=== PATIENT | male | born 1960 | race Caucasian/White ===

== ENCOUNTER → 2021-05-05 | Outpatient (REF) ==
--- NOTE | 2021-05-05 14:45 | REP ---
INDICATION: PAIN ARTHRITIS COMPARISON: None. TECHNIQUE: AP, lateral, bilateral oblique views left wrist. FINDINGS: Patient is noted to be status post multiple carpal bone resection and orthopedic repair with distal radial endoprosthesis. The residual osseous structures are relatively normal and without significant osteophytosis, heterotopic ossification or chondrocalcinosis. No obvious acute fracture or dislocation is identified. No prior examinations are available for comparison. IMPRESSION: Evidence for prior orthopedic intervention. No prior examinations are available for comparison. Findings appear relatively appropriate. <Electronically signed by Salvador Morales > 05/05/21 [id number]
--- NOTE | 2021-05-05 14:46 | REP ---
INDICATION: PAIN ARTHRITIS COMPARISON: None. TECHNIQUE: AP and lateral left forearm FINDINGS: No prior examinations are available for comparison. Patient is status post intervention involving the distal radius with endoprosthesis placement and evidence for multiple carpal bone resection. No evidence for acute fracture or dislocation. No subcutaneous emphysema or foreign body. IMPRESSION: Postsurgical changes. No evidence for acute abnormality by radiographic evaluation. <Electronically signed by Salvador Morales > 05/05/21 [id number]
--- NOTE | 2021-05-05 14:47 | REP ---
INDICATION: PAIN ARTHRITIS COMPARISON: None. TECHNIQUE: AP, lateral, bilateral oblique and sunrise views. FINDINGS: The osseous structures and joint spaces are intact and age-appropriate. There is no evidence for acute fracture or dislocation. No joint effusion is appreciated. Surrounding soft tissues are unremarkable. No subcutaneous emphysema or radiodense foreign body. IMPRESSION: Normal age-appropriate examination. No overt arthritic changes.. <Electronically signed by Salvador Morales > 05/05/21 [id number]
== END ==
LOC: M PLAIMG 13:42
PROVIDERS: ATTEND Internal Medicine
DX: M19.90 Unspecified osteoarthritis, unspecified site (principal)